=== PATIENT | male | born 1990 | race Caucasian/White ===

== ENCOUNTER 2017-02-26 04:42 | Emergency (ER) | payer SELFPAY ==
[2017-02-26 05:29] LABS: EOS # 0.1 (0.04-0.40); EOS % 1.5 % (0.0-4.0); HEMATOCRIT 47.6 % (42.0-52.0); HEMOGLOBIN 16.1 g/dL (13.5-18.0); MEAN CELL VOLUME 80 fl (78-100); MEAN CORPUSCULAR HEMOGLOBIN 27 pg (27-31); MEAN CORPUSCULAR HGB CONC 34 g/dL (33-37); MONO # 0.7 (0.20-0.80); NEU # 3.8 (1.40-6.50); PLATELET COUNT 207 K/mm3 (130-400); RED BLOOD COUNT 5.92 M/mm3 (4.20-5.60); RED CELL DISTRIBUTION WIDTH 14.6 % (11.5-14.5); WHITE BLOOD COUNT 6.6 K/mm3 (4.8-10.8)
[2017-02-26 05:50] LABS: ALBUMIN 5.2 g/dL (3.5-5.0); ALT/SGPT 25 U/L (21-72); AST-SGOT 20 U/L (17-59); BUN/CREATININE RATIO 13.5 (6.0-26.0); CARBON DIOXIDE 23 mmol/L (22-30); GLUCOSE 105 mg/dL (75-110); POTASSIUM 3.7 mmol/L (3.6-5.0); SODIUM 146 mmol/L (137-145); TOTAL BILIRUBIN 1.5 mg/dL (0.2-1.3); TOTAL PROTEIN 8.5 g/dL (6.3-8.2)
[2017-02-26 06:04] LABS: ACETAMINOPHEN < 4 ug/mL (10-30)
[2017-02-26 06:05] LABS: ALCOHOL IN-HOUSE < 10 mg/dL; MEAN PLATELET VOLUME 12.2 fl (7.4-10.4)
[2017-02-26 06:11] LABS: URINE APPEARANCE CLEAR; URINE COLOR AMBER
[2017-02-26 06:12] LABS: URINE BILIRUBIN 1+ (NEGATIVE); URINE BLOOD NEGATIVE (NEGATIVE); URINE GLUCOSE NEGATIVE (NEGATIVE); URINE KETONE NEGATIVE (NEGATIVE); URINE LEUKOCYTE ESTERASE NEGATIVE (NEGATIVE); URINE NITRATE NEGATIVE (NEGATIVE); URINE PROTEIN(semi-quant) TRACE mg/dL (NEGATIVE); URINE UROBILINOGEN 1 mg/dL (NORMAL); URINE WBC 0-1 /hpf (0-3)
[2017-02-26 06:13] LABS: URINE MUCUS PRESENT (NOT PRESENT)
[2017-02-26 07:58] VITALS: BP 133/78
== END 2017-02-26 07:59 | disposition home or self-care (01) ==
LOC: ED 04:42
PROVIDERS: Nurse Practitioner Family
DX: F32.9 Major depressive disorder, single episode, unspecified (principal); F17.200 Nicotine dependence, unspecified, uncomplicated; R45.851 Suicidal ideations